=== PATIENT | male | born 1955 | race Caucasian/White ===

== ENCOUNTER 2024-04-21 13:54 | Emergency (ER) | payer MEDICARE | END 2024-04-21 14:31 | disposition home or self-care (01) | LOC: NAV ERS 13:54 | DX: K94.09 Other complications of colostomy (principal) | CPT/HCPCS: 99282 ==

== ENCOUNTER 2024-05-10 11:12 | Emergency (ER) | payer MEDICARE, OTHER ==
[~2024-05-10 11:12] MED LIST: Iopamidol 370 76% 100 ML VIAL ONE
[2024-05-10] MEDS ORDERED: Ondansetron PF 4 MG/2 ML Vial ONE (12:29)
[2024-05-10] MEDS ORDERED: Morphine 2 MG/ML VIAL ONE ×3 (12:29→17:15)
[2024-05-10 13:06] LABS: #Eosinophils 0.1 thou/uL (0.0-0.7); #Lymphocytes 0.6 thou/uL (1.20-3.40); #Monocytes 0.4 thou/uL (0.11-0.59); #Neutrophils 3.6 thou/uL (1.40-6.50); %Eosinophils 1.5 % (0.0-10.0); %Lymphocytes 12.7 % (21.0-51.0); %Neutrophils 75.9 % (42.0-75.0); Hematocrit 29.7 % (42.0-52.0); Hemoglobin 9.4 g/dL (14.0-18.0); Mean Corpuscular HGB CONC 31.5 g/dL (32.0-36.0); Mean Corpuscular Hemoglobin 25.4 pg (27.0-31.0); Mean Corpuscular Volume 80.5 fl (78.0-98.0); Mean Platelet Volume 6.8 fL (7.4-10.4); Platelet Count 113 10x3/uL (130-400); RBC Distribution Width 16.7 % (11.5-14.5); Red Blood Cell (RBC) Count 3.68 mill/uL (4.70-6.10); White Blood Cell (WBC) Count 4.7 10x3/uL (4.8-10.8)
[2024-05-10 13:13] LABS: ALT (SGPT) 32 U/L (Less than 45); AST (SGOT) 57 U/L (11-34); Albumin 3.4 g/dL (3.1-4.5); Alkaline Phosphatase 89 U/L (40-110); Anion Gap 13 mmol/L (10-20); BUN (Urea Nitrogen) 13 mg/dL (8.4-25.7); Bilirubin, Total 0.5 mg/dL (0.3-1.2); Calc. Creatinine Clearance 0 mL/min (70-130); Calcium 8.9 mg/dL (7.8-10.44); Carbon Dioxide 23 mmol/L (23-31); Chloride 103 mmol/L (98-107); Estimated GFR 89; Globulin 3.7 g/dL (2.4-3.5); Glucose 175 mg/dL (80-115); Potassium 4.2 mmol/L (3.5-5.1); Protein, Total 7.1 g/dL (5.8-8.1); Sodium 135 mmol/L (136-145)
== END 2024-05-10 17:47 | disposition home or self-care (01) ==
LOC: NAV ERS 11:12
DX: K63.2 Fistula of intestine (principal); R10.30 Lower abdominal pain, unspecified; Z43.3 Encounter for attention to colostomy
CPT/HCPCS: 74177; 80053; 85025; J2272; J2405; 96374; 96375; Q9967

== ENCOUNTER 2024-10-21 10:30 | Emergency (ER) | payer OTHER ==
[2024-10-21 10:45] LABS: #Basophils 0.0 thou/uL (0.0-0.2); #Eosinophils 0.1 thou/uL (0.0-0.7); #Lymphocytes 0.9 thou/uL (1.20-3.40); #Monocytes 0.8 thou/uL (0.11-0.59); #Neutrophils 4.7 thou/uL (1.40-6.50); %Basophils 0.7 % (0.0-1.0); %Eosinophils 1.2 % (0.0-10.0); %Lymphocytes 14.2 % (21.0-51.0); %Monocytes 11.6 % (0.0-10.0); %Neutrophils 72.3 % (42.0-75.0); Hematocrit 38.3 % (42.0-52.0); Hemoglobin 13.0 g/dL (14.0-18.0); Mean Corpuscular Hemoglobin 30.5 pg (27.0-31.0); Mean Corpuscular Volume 89.6 fl (78.0-98.0); Platelet Count 142 10x3/uL (130-400); Red Blood Cell (RBC) Count 4.27 mill/uL (4.70-6.10); White Blood Cell (WBC) Count 6.4 10x3/uL (4.8-10.8)
[2024-10-21] MEDS ORDERED: Ondansetron PF 4 MG/2 ML Vial ONE (10:56)
[2024-10-21 11:04] LABS: ALT (SGPT) 31 U/L (Less than 45); AST (SGOT) 74 U/L (11-34); Albumin 4.9 g/dL (3.1-4.5); Alkaline Phosphatase 115 U/L (40-110); Anion Gap 25 mmol/L (10-20); BUN (Urea Nitrogen) 64 mg/dL (8.4-25.7); Bilirubin, Total 1.8 mg/dL (0.3-1.2); Calc. Creatinine Clearance 0 mL/min (70-130); Calcium 8.5 mg/dL (7.8-10.44); Carbon Dioxide 23 mmol/L (23-31); Chloride 88 mmol/L (98-107); Globulin 4.3 g/dL (2.4-3.5); Glucose 90 mg/dL (80-115); Potassium 4.4 mmol/L (3.5-5.1); Sodium 132 mmol/L (136-145)
[2024-10-21] MEDS ORDERED: diphenhydrAMINE 50 MG/ML VIAL ONE (11:06)
[2024-10-21 11:10] LABS: Critical Call Chemistry BURAN@1108.NW; Magnesium 0.7 mg/dL (1.6-2.6)
[2024-10-21] MEDS ORDERED: Famotidine/PF 20 mg/2ml Vial ONE (11:10)
[2024-10-21] MEDS ORDERED: Pantoprazole 40 MG VIAL ONE (11:10)
[2024-10-21] MEDS ORDERED: Magnesium 2 GM/50 ML BAG (IN WATER) ONE (11:15)
[2024-10-21 13:54] LABS: Glucose, Urine (Dipstick) Negative (Negative); Leukocyte Negative (Negative); Protein, Urine (Dipstick) Negative (Neg-Trace); Specific Gravity, Urine 1.010 (1.005-1.030)
[2024-10-21 14:08] LABS: CAUTI Indications for Culture Immunosuppressed; RBC/HPF 0-3 HPF (0-3); WBC/HPF 0-3 HPF (0-3)
[2024-10-21 14:09] LABS: Urine Culture Reflex Yes Yes
== END 2024-10-21 14:26 | disposition short-term general hospital (02) ==
LOC: NAV ERS 10:30
DX: N17.9 Acute kidney failure, unspecified (principal); E86.0 Dehydration; E83.42 Hypomagnesemia; E87.1 Hypo-osmolality and hyponatremia; K90.829 Short bowel syndrome, unspecified; K21.9 Gastro-esophageal reflux disease without esophagitis
CPT/HCPCS: 80053; 81001; 83735; 85025; 87086; 93005; 96361; 96365; 96375; J1200; J2470; J3475; J7030; J7120; Q0162

== ENCOUNTER 2025-02-24 10:22 | Emergency (ER) | payer OTHER ==
[2025-02-24 11:50] LABS: Hematocrit 34.4 % (42.0-52.0); Hemoglobin 11.7 g/dL (14.0-18.0); Mean Corpuscular Hemoglobin 30.1 pg (27.0-31.0); Mean Corpuscular Volume 88.2 fl (78.0-98.0); Red Blood Cell (RBC) Count 3.91 mill/uL (4.70-6.10); White Blood Cell (WBC) Count 3.2 10x3/uL (4.8-10.8)
[2025-02-24 11:51] LABS: Platelet Count 54 10x3/uL (130-400)
[2025-02-24 11:55] LABS: ALT (SGPT) 38 U/L (Less than 45); AST (SGOT) 73 U/L (11-34); Albumin 4.2 g/dL (3.1-4.5); Alkaline Phosphatase 119 U/L (40-110); Anion Gap 18 mmol/L (10-20); BUN (Urea Nitrogen) 33 mg/dL (8.4-25.7); Bilirubin, Total 1.5 mg/dL (0.3-1.2); Calc. Creatinine Clearance 0 mL/min (70-130); Calcium 9.3 mg/dL (7.8-10.44); Carbon Dioxide 30 mmol/L (23-31); Chloride 93 mmol/L (98-107); Globulin 4.1 g/dL (2.4-3.5); Glucose 110 mg/dL (80-115); Lipase 49 U/L (8-78); Magnesium 1.8 mg/dL (1.6-2.6); Potassium 3.1 mmol/L (3.5-5.1); Sodium 138 mmol/L (136-145)
[2025-02-24 12:01] LABS: Platelet Adequacy Comment Appears Decreased
== END 2025-02-24 14:00 | disposition home or self-care (01) ==
LOC: NAV ERS 10:22
DX: M54.6 Pain in thoracic spine (principal); E87.6 Hypokalemia; K21.9 Gastro-esophageal reflux disease without esophagitis
CPT/HCPCS: 80053; 83690; 83735; 85025; 96374; J3010